=== PATIENT | male | born 1985 ===

== ENCOUNTER 2016-08-04 09:40 | Observation (INO) | payer OTHER ==
--- NOTE | 2016-08-04 10:33 | ED PDOC ---
HPI: Chest Pain Time Seen by Provider: 08/04/16 10:07 Chief Complaint (Nursing): Chest Pain Chief Complaint (Provider): chest pressure History Per: Patient History/Exam Limitations: no limitations Additional Complaint(s): 31yo male comes to the ED complaining of chest pressure, dizziness that began while at work earlier today. Reports also having difficulty swallowing earlier. No recent stress. Admits to partying with cocaine and alcohol use Thursday and Thursday night. No PMD Past Medical History Reviewed: Historical Data, Nursing Documentation, Vital Signs Vital Signs: Last Vital Signs Temp 98.0 F 08/04/16 14:17 Pulse 85 08/04/16 14:17 Resp 17 08/04/16 14:17 BP 135/70 08/04/16 14:17 Pulse Ox 98 08/04/16 14:17 - Medical History PMH: Anxiety - Surgical History Surgical History: Appendectomy - Family History Family History: States: Unknown Family Hx - Social History Drugs: Cocaine - Immunization History Hx Tetanus Toxoid Vaccination: No Hx Influenza Vaccination: No Hx Pneumococcal Vaccination: No - Home Medications Home Medications: Ambulatory Orders Medication Instructions Recorded Meclizine [Meclizine*] 25 mg PO Q6 #30 tab 05/28/16 Methylprednisolone [Medrol Dose 4 mg PO DAILY #21 mg 05/28/16 Pack (21 tabs)] Triamcinolone Acetonide [Nasacort 1 spray NS DAILY #1 unit 05/28/16 Allergy 24Hr] - Allergies Allergies/Adverse Reactions: Allergies Allergy/AdvReac Type Severity Reaction Status Date / Time No Known Allergies Allergy Verified 08/04/16 10:08 Review of Systems ROS Statement: Except As Marked, All Systems Reviewed And Found Negative Cardiovascular: Positive for: Chest Pain Respiratory: Negative for: Shortness of Breath Neurological: Positive for: Dizziness Physical Exam - Reviewed Nursing Documentation Reviewed: Yes Vital Signs Reviewed: Yes - Physical Exam Appears: Positive for: Well, Non-toxic, No Acute Distress Head Exam: Positive for: ATRAUMATIC, NORMAL INSPECTION, NORMOCEPHALIC Skin: Positive for: Warm, Dry Eye Exam: Positive for: EOMI, PERRL Cardiovascular/Chest: Positive for: Regular Rate, Rhythm Respiratory: Positive for: Normal Breath Sounds. Negative for: Rales, Rhonchi, Wheezing Extremity: Positive for: Normal ROM Neurologic/Psych: Positive for: Alert, Oriented - Laboratory Results Result Diagrams: 08/04/16 10:54 08/04/16 10:54 - ECG O2 Sat by Pulse Oximetry: 98 (RA) Pulse Ox Interpretation: Normal Medical Decision Making Medical Decision Makin impression chest pain plan: -EKG -Labs -Xanax, ASA -reassess Placed into ED Obs given hx cocaine abuse and need for prolonged cardiac monitoring and repeat troponin. labs reviewed initial trop negative chem unremarkable trop repeated and remains negative. 5pm symptoms resolved, pt asymptomatic. Discussed dangers of cocaine and alcohol abuse. Will DC to followup clinic. Disposition - Clinical Impression Clinical Impression: Cocaine abuse, Chest pain - Patient ED Disposition Is Patient to be Admitted: No Counseled Patient/Family Regarding: Studies Performed, Diagnosis, Need For Followup - Disposition Disposition: Routine/Home Disposition Time: 12:55 Condition: STABLE - POA Present On Arrival: None Additional Comments - Additional Comments Additional Comments: Scribe Attestation: Documented by Gerardo Shepherd, acting as a scribe for Kashmir Maya DO. Provider Scribe Attestation: All medical record entries made by the Scribe were at my direction and personally dictated by me. I have reviewed the chart and agree that the record accurately reflects my personal performance of the history, physical exam, medical decision making, and the department course for this patient. I have also personally directed, reviewed, and agree with the discharge instructions and disposition.
[2016-08-04 10:58] LABS: BASO % 0.5 % (0.0-2.0); EOS % 0.1 % (0.0-4.0); HEMATOCRIT 42.3 % (35.0-51.0); LYMPH % 20.2 % (20.0-40.0); MEAN CELL VOLUME 82.1 fl (80.0-94.0); MEAN CORPUSCULAR HEMOGLOBIN 28.3 pg (27.0-31.0); MEAN CORPUSCULAR HGB CONC 34.5 g/dL (33.0-37.0); MEAN PLATELET VOLUME 8.5 fl (7.2-11.7); MONO % 4.2 % (0.0-10.0); RED CELL DISTRIBUTION WIDTH 13.8 % (11.5-14.5); WHITE BLOOD COUNT 14.4 K/uL (4.8-10.8)
[2016-08-04 10:59] LABS: BASO # 0.1 K/uL (0.0-0.2); LYMPH # 2.9 K/uL (1.0-4.3); MONO # 0.6 K/uL (0.0-0.8); NEUT # 10.8 K/uL (1.8-7.0); NRBC % 0.8 % (0.0-0.0)
[2016-08-04 11:33] LABS: ALB/GLOB RATIO 1.3 (1.0-2.1); ALKALINE PHOSPHATASE 104 U/L (38-126); ALT/SGPT 41 U/L (21-72); AST/SGOT 56 U/L (17-59); BILIRUBIN,TOTAL 0.7 mg/dl (0.2-1.3); BLOOD UREA NITROGEN 14 mg/dl (9-20); CALCIUM 9.5 mg/dL (8.4-10.2); CARBON DIOXIDE 24 mmol/L (22-30); CHLORIDE 102 mmol/L (98-107); GFR AFRICAN-AMERICAN > 60; GLUCOSE,RANDOM 98 mg/dL (75-110); POTASSIUM 4.4 MMOL/L (3.6-5.0); SODIUM 142 mmol/l (132-148); TOTAL PROTEIN 8.2 G/DL (6.3-8.2)
[2016-08-04 19:03] VITALS: BP 135/78; PULSE 83; RESP 16; TEMP 97.8; O2SAT 100
--- NOTE | 2016-08-04 19:45 | CARD ---
APPROVED REPORT EKG Measurement Heart [id number] <Conclusion> Normal sinus rhythm Normal ECG
== END 2016-08-04 17:35 | disposition home or self-care (01) ==
LOC: H.ER 09:40 → H.EROBSV 12:55
PROVIDERS: ADMIT Emergency Medicine; ATTEND Emergency Medicine
DX: F14.10 Cocaine abuse, uncomplicated (principal); R07.9 Chest pain, unspecified

== ENCOUNTER 2016-08-27 02:30 | Observation (INO) | payer OTHER ==
[2016-08-27 03:02] VITALS: O2SAT 99
[2016-08-27] MEDS ORDERED: Sodium Chloride 0.9% 1,000 ML IV STA (03:29)
[2016-08-27] MEDS ORDERED: Iohexol 240 (50 ml) PO ONE (03:29)
--- NOTE | 2016-08-27 03:32 | ED PDOC ---
HPI: Abdomen Time Seen by Provider: 08/27/16 02:51 Chief Complaint (Nursing): Abdominal Pain Chief Complaint (Provider): abdominal pain History Per: Patient History/Exam Limitations: no limitations Onset/Duration Of Symptoms: Hrs Location Of Pain/Discomfort: Diffuse Quality Of Discomfort: Sharp, "Pain" Associated Symptoms: Diarrhea. denies: Fever, Chills, Nausea, Vomiting Additional History Per: Patient Additional Complaint(s): 31 y/o male presents for eval of acute onset diffuse abdominal pain x 4 hours. Patient notes symptoms to have started shortly after eating skirt steak for dinner, and to have gotten progressively worse. Associated nonbloody diarrhea. Denies fever, nausea/vomiting, chest pain, shortness of breath, palpitations, recent travel, sick contacts. Past Medical History Reviewed: Historical Data, Nursing Documentation, Vital Signs Vital Signs: Last Vital Signs Temp 98.5 F 08/27/16 02:59 Pulse 71 08/27/16 02:59 Resp 16 08/27/16 02:59 BP 137/80 08/27/16 02:59 Pulse Ox 99 08/27/16 03:32 - Medical History PMH: Anxiety - Surgical History Surgical History: Appendectomy - Family History Family History: States: Unknown Family Hx - Immunization History Hx Tetanus Toxoid Vaccination: No Hx Influenza Vaccination: No Hx Pneumococcal Vaccination: No - Home Medications Home Medications: Ambulatory Orders Medication Instructions Recorded Meclizine [Meclizine*] 25 mg PO Q6 #30 tab 05/28/16 Methylprednisolone [Medrol Dose 4 mg PO DAILY #21 mg 05/28/16 Pack (21 tabs)] Triamcinolone Acetonide [Nasacort 1 spray NS DAILY #1 unit 05/28/16 Allergy 24Hr] - Allergies Allergies/Adverse Reactions: Allergies Allergy/AdvReac Type Severity Reaction Status Date / Time No Known Allergies Allergy Verified 08/04/16 10:08 Review of Systems ROS Statement: Except As Marked, All Systems Reviewed And Found Negative Gastrointestinal: Positive for: Abdominal Pain, Diarrhea Physical Exam - Reviewed Nursing Documentation Reviewed: Yes Vital Signs Reviewed: Yes - Physical Exam Appears: Positive for: Well, Non-toxic, Uncomfortable Head Exam: Positive for: ATRAUMATIC, NORMAL INSPECTION, NORMOCEPHALIC Cardiovascular/Chest: Positive for: Regular Rate, Rhythm Respiratory: Positive for: Normal Breath Sounds Gastrointestinal/Abdominal: Positive for: Bowel Sounds, Soft, Tenderness ( diffuse) Extremity: Positive for: Normal ROM Neurologic/Psych: Positive for: Alert, Oriented - Laboratory Results Result Diagrams: 08/27/16 03:50 08/27/16 03:47 - ECG O2 Sat by Pulse Oximetry: 99 - Progress ED Course And Treament: labs, urine, CT abd/pelvis, IV fluids, IV toradol On re-eval, patient notes no improvement of pain; IV morphine ordered ED OBSERVATION Date of observation admission: 08/27/16 Time of observation admission: 05:00 - Observation admission statement Patient is being placed in observation because:: abdominal pain, diarrhea - Goals of Observation Goals of observation are:: obtain CT abd/pelvis - Progress Note Progress Note: 08/27/16 05:47 Patient resting comfortably; awaiting CT Disposition - Clinical Impression Clinical Impression: Abdominal pain - Patient ED Disposition Is Patient to be Admitted: No - Disposition Disposition: Transfer of Care Disposition Time: 06:00 Condition: STABLE Patient Signed Over To: Gael Mims Handoff Comments: pending CT
[2016-08-27 03:53] LABS: EOS # 0.2 K/uL (0.0-0.7); MONO # 0.5 K/uL (0.0-0.8); NRBC % 0.1 % (0.0-0.0)
[2016-08-27] MEDS ORDERED: Iohexol 240 (50 ml) ONE (04:00)
[2016-08-27 04:01] LABS: RBC URINE 3 /hpf (0-3); URINE BILIRUBIN NEGATIVE (NEGATIVE); URINE BLOOD NEGATIVE (NEGATIVE); URINE COLOR YELLOW (YELLOW); URINE GLUCOSE (UA) NEG (Normal); URINE KETONE NEGATIVE (NEGATIVE); URINE LEUKOCYTE ESTERASE NEG Leu/uL (Negative); URINE PROTEIN NEGATIVE (NEGATIVE); URINE UROBILINOGEN 0.2-1.0 mg/dL (0.2-1.0); WBC URINE < 1 /hpf (0-5)
[2016-08-27 04:05] LABS: ALB/GLOB RATIO 1.3 (1.0-2.1); ALKALINE PHOSPHATASE 96 U/L (38-126); ALT/SGPT 36 U/L (21-72); AST/SGOT 32 U/L (17-59); BILIRUBIN,TOTAL 0.5 mg/dl (0.2-1.3); BLOOD UREA NITROGEN 20 mg/dl (9-20); CALCIUM 8.9 mg/dL (8.4-10.2); CARBON DIOXIDE 21 mmol/L (22-30); CHLORIDE 106 mmol/L (98-107); GFR AFRICAN-AMERICAN > 60; GLUCOSE,RANDOM 108 mg/dL (75-110); LIPASE 113 U/L (23-300); POTASSIUM 4.3 MMOL/L (3.6-5.0); SODIUM 141 mmol/l (132-148); TOTAL PROTEIN 7.1 G/DL (6.3-8.2)
[2016-08-27 04:10] LABS: BASO % 0.2 % (0.0-2.0); EOS % 2.2 % (0.0-4.0); HEMATOCRIT 39.3 % (35.0-51.0); LYMPH # 3.3 K/uL (1.0-4.3); LYMPH % 33.6 % (20.0-40.0); MEAN CELL VOLUME 82.5 fl (80.0-94.0); MEAN CORPUSCULAR HEMOGLOBIN 29.1 pg (27.0-31.0); MEAN CORPUSCULAR HGB CONC 35.3 g/dL (33.0-37.0); MEAN PLATELET VOLUME 8.6 fl (7.2-11.7); NEUT # 5.8 K/uL (1.8-7.0); WHITE BLOOD COUNT 9.8 K/uL (4.8-10.8)
--- NOTE | 2016-08-27 05:50 | ED PDOC ---
- Laboratory Results Result Diagrams: 08/27/16 03:50 08/27/16 03:47 - ECG O2 Sat by Pulse Oximetry: 99 Medical Decision Making Medical Decision Making: Patient s/o from Jose Levi PA-C at [address] Patient s/o to Dr. Dickens at [address] Scribe Attestation: Documented by Allegra Samuels acting as a scribe for Gael Mims MD. Provider Scribe Attestation: All medical record entries made by the Scribe were at my direction and personally dictated by me. I have reviewed the chart and agree that the record accurately reflects my personal performance of the history, physical exam, medical decision making, and the department course for this patient. I have also personally directed, reviewed, and agree with the discharge instructions and disposition. Disposition - Clinical Impression Clinical Impression: Diverticulitis - POA Present On Arrival: None - Disposition Disposition: Transfer of Care Disposition Time: 07:00 Condition: STABLE Patient Signed Over To: Aleks Dickens Handoff Comments: pending CT
[2016-08-27] MEDS ORDERED: Sodium Chloride 0.9% 50 ML IV ONE (06:08)
[2016-08-27] MEDS ORDERED: Iohexol 300 100 ML IJ ONE (06:08)
--- NOTE | 2016-08-27 07:35 | ED PDOC ---
- Laboratory Results Result Diagrams: 08/27/16 03:50 08/27/16 03:47 Interpretation Of Abn Labs: no acute - ECG O2 Sat by Pulse Oximetry: 99 (RA) Pulse Ox Interpretation: Normal - CT Scan/US ct Other Rad Studies (CT/US): Read By Radiologist Other Rad Interpretation: diverticulitis - Progress ED Course And Treament: 1818: Stable. AAOx3. Pain free. Tolerated PO. Ambulated. Fu with pcp and GI. Medical Decision Making Medical Decision Makin signed over to me by Allegra Mims MD pending CT, reassessment. Disposition - Clinical Impression Clinical Impression: Diverticulitis - POA Present On Arrival: None - Disposition Disposition: Routine/Home Disposition Time: 08:19 Condition: STABLE ED OBSERVATION Date of observation admission: 08/27/16 Time of observation admission: 05:00 Additional Comments - Additional Comments Additional Comments: Scribe Attestation: Documented by Gerardo Shepherd acting as a scribe for Lino Dickens MD. Provider Scribe Attestation: All medical record entries made by the Scribe were at my direction and personally dictated by me. I have reviewed the chart and agree that the record accurately reflects my personal performance of the history, physical exam, medical decision making, and the department course for this patient. I have also personally directed, reviewed, and agree with the discharge instructions and disposition.
[2016-08-27 07:52] VITALS: BP 134/76; PULSE 64; RESP 18; TEMP 98.7
--- NOTE | 2016-08-27 07:57 | CT ---
EXAM: CT Abdomen and Pelvis With Intravenous Contrast CLINICAL HISTORY: 31 years old, male; Pain; Abdominal pain; Generalized; Prior surgery; Surgery date: 6+ months; Surgery type: Appendectomy; Additional info: Diffuse abdominal pain, diarrhea TECHNIQUE: Axial computed tomography images of the abdomen and pelvis with intravenous contrast. This CT exam was performed using one or more of the following dose reduction techniques: automated exposure control, adjustment of the mA and/or kV according to patient size, and/or use of iterative reconstruction technique. Coronal and sagittal reformatted images were created and reviewed. CONTRAST: 95 mL of [id number] administered intravenously. COMPARISON: No relevant prior studies available. FINDINGS: Lower thorax: There is minimal bibasilar atelectasis. ABDOMEN: Liver: There are no focal liver lesions present. Gallbladder and bile ducts: The gallbladder is normal. No calcified stones. No ductal dilation. Pancreas: The pancreas is normal. No ductal dilation. Spleen: The spleen is normal. Adrenals: The adrenal glands are normal. Kidneys and ureters: The kidneys are normal. No hydronephrosis. Stomach and bowel: There is minimal stranding adjacent to the proximal sigmoid colon. It is possible that this could represent a minimal acute diverticulitis. Please correlate clinically. Stomach is predominantly decompressed. Mild diverticulosis is present in the sigmoid and descending colon. There is no evidence of intestinal obstruction. Appendix: There has been an appendectomy. PELVIS: Bladder: Bladder is decompressed. Reproductive: The prostate gland and seminal vesicles are normal. ABDOMEN and PELVIS: Intraperitoneal space: There is no evidence of free intraperitoneal fluid. There is no free intraperitoneal air. Bones/joints: No acute fracture. No dislocation. Soft tissues: Unremarkable. Vasculature: The aorta is normal. No abdominal aortic aneurysm. Lymph nodes: There is no evidence of lymphadenopathy. IMPRESSION: 1. There is minimal stranding adjacent to the proximal sigmoid colon. It is possible that this could represent a minimal acute diverticulitis. Please correlate clinically. 2. Otherwise no acute pathology identified in the abdomen or pelvis. 3. There has been an appendectomy.
== END 2016-08-27 08:20 | disposition home or self-care (01) ==
LOC: H.ER 02:30 → H.EROBSV 05:00
PROVIDERS: ADMIT Emergency Medicine; ATTEND Emergency Medicine
DX: K57.92 Diverticulitis of intestine, part unspecified, without perforation or abscess without bleeding (principal); F41.9 Anxiety disorder, unspecified; R19.7 Diarrhea, unspecified

== ENCOUNTER 2018-02-09 21:35 | Emergency (ER) | payer SELFPAY ==
[2018-02-09 21:46] VITALS: RESP 18; TEMP 98.8
[2018-02-09] MEDS ORDERED: Sodium Chloride 0.9% 1,000 ML IV STA (22:47)
--- NOTE | 2018-02-09 22:50 | ED PDOC ---
HPI: Abdomen Chief Complaint (Provider): abdominal pain History Per: Patient History/Exam Limitations: no limitations Onset/Duration Of Symptoms: Days (2), Waxing/Waning Current Symptoms Are (Timing): Still Present Location Of Pain/Discomfort: Epigastric Additional Complaint(s): 32 y/o male presents for evaluation of intermittent epigastric abdominal pain x 2 days, worse today. Patient states he feels a "burning" sensation in the top of the stomach, and then feels like there is food coming up in his throat. Associated nausea. Denies fever, vomiting, chest pain, shortness of breath, pal pitations, changes in bowel movements, urinary symptoms. Patient states he cut his left hand 2nd digit this morning at work; denies numbness/weakness left upper extremity, limitation of movement. Last tetanus unknown. <Nazia Levi - Last Filed: 02/10/18 00:57> <Rachel Tillman - Last Filed: 02/13/18 12:07> Time Seen by Provider: 02/09/18 22:40 Chief Complaint (Nursing): Abdominal Pain Past Medical History Reviewed: Historical Data, Nursing Documentation, Vital Signs Vital Signs: Last Vital Signs Temp 98.8 F 02/09/18 21:43 Pulse 91 H 02/09/18 21:43 Resp 18 02/09/18 21:43 BP 132/81 02/09/18 21:43 Pulse Ox 98 02/09/18 21:43 - Medical History PMH: Anxiety - Surgical History Surgical History: Appendectomy - Family History Family History: States: Unknown Family Hx - Immunization History Hx Tetanus Toxoid Vaccination: No Hx Influenza Vaccination: No Hx Pneumococcal Vaccination: No <Nazia Levi - Last Filed: 02/10/18 00:57> Vital Signs: Last Vital Signs Temp 98.8 F 02/09/18 21:43 Pulse 72 02/10/18 01:20 Resp 18 02/10/18 01:20 BP 134/60 02/10/18 01:20 Pulse Ox 99 02/10/18 01:20 <Rachel Tillman - Last Filed: 02/13/18 12:07> - Home Medications Home Medications: Ambulatory Orders Medication Instructions Recorded Acetaminophen [Tylenol Extra 1,000 mg PO Q6 PRN 09/05/17 Strength] Acetaminophen [Tylenol] 975 mg PO TID #30 capsule 09/05/17 Oseltamivir Phosphate [Tamiflu] 75 mg PO BID #10 capsule 09/05/17 Famotidine [Pepcid] 20 mg PO BID #20 tab 02/10/18 - Allergies Allergies/Adverse Reactions: Allergies Allergy/AdvReac Type Severity Reaction Status Date / Time No Known Allergies Allergy Verified 02/09/18 21:41 Review of Systems ROS Statement: Except As Marked, All Systems Reviewed And Found Negative Gastrointestinal: Positive for: Nausea, Abdominal Pain Musculoskeletal: Positive for: Hand Pain (left hand 2nd digit) <Nazia Levi C - Last Filed: 02/10/18 00:57> Physical Exam - Reviewed Nursing Documentation Reviewed: Yes Vital Signs Reviewed: Yes - Physical Exam Appears: Positive for: Well, Non-toxic, No Acute Distress Head Exam: Positive for: ATRAUMATIC, NORMAL INSPECTION, NORMOCEPHALIC Skin: Positive for: Normal Color Eye Exam: Positive for: Normal appearance ENT: Positive for: Normal ENT Inspection Cardiovascular/Chest: Positive for: Regular Rate, Rhythm Respiratory: Positive for: Normal Breath Sounds Gastrointestinal/Abdominal: Positive for: Bowel Sounds, Soft, Tenderness (epigastric) Back: Positive for: Normal Inspection Extremity: Positive for: Normal ROM, Other (1.0cm superficial laceration dorsal left hand proximal 2nd digit; no active bleeding. Distal NV/motor intact) Neurologic/Psych: Positive for: Alert, Oriented (x3) <Nazia Levi C - Last Filed: 02/10/18 00:57> - Laboratory Results Result Diagrams: 02/09/18 23:20 02/09/18 23:20 - ECG O2 Sat by Pulse Oximetry: 98 - Progress ED Course And Treament: labs, IV fluids, IV pepcid, IV zofran Patient declines tetanus vaccine at this time Wound irrigated with 200mL NS; wound edges held together using dermabond, steristrips. Finger placed in splint On re-eval, patient states he is feeling better. Tolerating PO Patient educated on findings, discharged with rx Pepcid Advised diet modification. Educated on wound care Follow up PMD within 2-3 days Return precautions given <Nazia Levi - Last Filed: 02/10/18 00:57> - Laboratory Results Result Diagrams: 02/09/18 23:20 02/09/18 23:20 <Rachel Tillman - Last Filed: 02/13/18 12:07> Disposition - Patient ED Disposition Is Patient to be Admitted: No Counseled Patient/Family Regarding: Studies Performed, Diagnosis, Need For Followup, Rx Given - Disposition Disposition: Routine/Home Disposition Time: 00:58 <Nazia Levi - Last Filed: 02/10/18 00:57> <Rachel Tillman - Last Filed: 02/13/18 12:07> - Clinical Impression Clinical Impression: Abdominal pain, Finger laceration - Disposition Referrals: [facility] [Outside] Condition: IMPROVED Prescriptions: Famotidine [Pepcid] 20 mg PO BID #20 tab Instructions: Laceration Repair, Acid Reflux (Gastroesophageal Reflux Disease), Adult (DC), Acute Abdomen (Belly Pain) Print Language: TURKMEN Addendum Addendum: 02/13/18 10:34 Reviewed chart. Agree with PA assessment and plan. <Rachel Tillman - Last Filed: 02/13/18 12:07>
[2018-02-09 23:37] LABS: BASO % 0.4 % (0.0-2.0); EOS # 0.1 K/uL (0.0-0.7); EOS % 1.2 % (0.0-4.0); LYMPH # 4.9 K/uL (1.0-4.3); LYMPH % 44.1 % (20.0-40.0); MEAN CELL VOLUME 84.1 fl (80.0-94.0); MEAN CORPUSCULAR HEMOGLOBIN 30.3 pg (27.0-31.0); MEAN CORPUSCULAR HGB CONC 36.1 g/dL (33.0-37.0); MEAN PLATELET VOLUME 8.9 fl (7.2-11.7); MONO # 0.5 K/uL (0.0-0.8); MONO % 4.9 % (0.0-10.0); NEUT # 5.5 K/uL (1.8-7.0); NEUT % 49.4 % (50.0-75.0); NRBC % 0.2 % (0.0-0.0); RBC 4.67 Mil/uL (4.40-5.90); RED CELL DISTRIBUTION WIDTH 13.8 % (11.5-14.5); WHITE BLOOD COUNT 11.1 K/uL (4.8-10.8)
[2018-02-09 23:47] LABS: ALB/GLOB RATIO 1.3 (1.0-2.1); ALBUMIN 4.1 g/dL (3.5-5.0); ALT/SGPT 27 U/L (21-72); AST/SGOT 31 U/L (17-59); BLOOD UREA NITROGEN 24 mg/dl (9-20); CALCIUM 8.9 mg/dL (8.4-10.2); GFR NON-AFRICAN AMERICAN > 60; LIPASE 122 U/L (23-300)
[2018-02-10 00:39] LABS: HEMOGLOBIN 14.4 g/dL (12.0-18.0)
[2018-02-10 03:46] VITALS: BP 134/60; PULSE 72; O2SAT 99
== END 2018-02-10 01:20 | disposition home or self-care (01) ==
LOC: H.ER 21:35
DX: R10.13 Epigastric pain (principal); S61.219A Laceration without foreign body of unspecified finger without damage to nail, initial encounter
CPT/HCPCS: 29130; 80053; 83690; 85025; 96374; 99284; J2405; J7030